=== PATIENT | male | born 1970 ===

== ENCOUNTER 2025-04-19 16:27 | Emergency (ER) | payer OTHER ==
[~2025-04-19] VITALS: Ht 172.7 cm; Wt 86.4 kg
[2025-04-19 17:06] VITALS: TEMP 98.1
[2025-04-19] MEDS: ACETAMINOPHEN 500 MG TABLET PO ONE (18:20)
[2025-04-19 18:51] VITALS: BP 145/85; PULSE 73; RESP 18; O2SAT 95
== END 2025-04-19 19:07 ==
LOC: EMS 16:27
DX: S46.002A Unspecified injury of muscle(s) and tendon(s) of the rotator cuff of left shoulder, initial encounter (principal); Z88.7 Allergy status to serum and vaccine; X58.XXXA Exposure to other specified factors, initial encounter; Y93.89 Activity, other specified; Y92.89 Other specified places as the place of occurrence of the external cause; Y99.8 Other external cause status
CPT/HCPCS: 99283